=== PATIENT | female | born 1970 | race Hispanic/Latino ===

== ENCOUNTER 2018-04-29 10:39 | Emergency (ER) | payer OTHER ==
[~2018-04-29] VITALS: Ht 157.5 cm; Wt 57.6 kg
[2018-04-29] MEDS ORDERED: ADVIL200 M1 PO (10:53)
== END 2018-04-29 12:08 | disposition home or self-care (01) ==
LOC: ED 10:39
DX: M79.641 Pain in right hand (principal); M79.642 Pain in left hand; Z88.8 Allergy status to other drugs, medicaments and biological substances
CPT/HCPCS: 99282

== ENCOUNTER 2018-12-18 11:20 | Day surgery (SDC) | payer OTHER ==
[~2018-12-18] VITALS: Ht 154.9 cm; Wt 59.0 kg
[~2018-12-18 11:20] MED LIST: ADVIL200 M1 PO
--- NOTE | 2018-12-18 12:16 | NUR ---
PT AND OFFERED COLD MEAT COOK DECLINES STATES HE CAN UNDERSTAND AND INTERPRET FOR .
[2018-12-18] MEDS ORDERED: OXYCODONE HCL5 MG PO (13:40)
--- NOTE | 2018-12-18 13:50 | NUR ---
12/18/18 1350 Sheets,Elza 1342 PT ARRIVED WITH ORAL AIRWAY IN PLACE, RESP EVEN AND UNLABORED. PT ON 10L VIA MASK, DECREASED TO 6L. 1347 PT REACTIVE TO PAINFUL STIMULI.
--- NOTE | 2018-12-18 16:09 | NUR ---
1555 HAS AMB TO [facility], VOIDS QS. ATE SOUP AND SANDWICH. PAIN MED TAKEN FOR LONG RIDE HOME IN CASE BLOCK STARTS TO WEAR OFF. RATES PAIN 12/03.
--- NOTE | 2018-12-20 10:39 | OR ---
[facility] [address] [place], [place] [address] Signed DATE OF OPERATION: 12/18/2018 SURGEON: Romulo Zavala MD PREOPERATIVE DIAGNOSIS: Carpal tunnel syndrome, left POSTOPERATIVE DIAGNOSIS: Carpal tunnel syndrome, left. PROCEDURE PERFORMED: Carpal tunnel release, left. ANESTHESIA: Tristin block. DIRECTOR ASSET: None. TOURNIQUET TIME: 15 minutes. BRIEF HISTORY: Renee is a 48-year-old female with pain and numbness in her wrist. Nerve conduction studies were consistent with carpal tunnel. Risks and benefits of operative treatment were discussed with her and she elected to proceed. DESCRIPTION OF PROCEDURE: Once consent was obtained, she was taken to the operating room. After adequate anesthesia, was placed on operating room table. All downside pressure points well padded. The left arm was prepped and draped in standard sterile fashion and the carpal tunnel was approached through a 1.5 cm incision in the distal wrist crease, carried through skin and subcutaneous tissue. The palmaris longus was identified, retracted and protected. The transverse carpal ligament was identified and dissected free of overlying soft tissue using loupe magnification. It was then transected approximately a cm and distally to the distal extent. This was palpated using a [place] and found to be completely released. Wound was copiously irrigated with antibiotic solution, closed with 3-0 nylon and dressed with bacitracin, Adaptic, and 4x8 gauze, we did inject the wanda-incisional area with 4 mL of 0.25% plain Marcaine. Electronically Signed By: ROMULO ZAVALA MD 12/20/18 1039 PATIENT NAME: RENEE DUTTA OPERATIVE REPORT DATE OF : 70 REPORT #: [id number] PHYSICIAN: ROMULO ZAVALA MD PCP: NO PRIMARY CARE PHYSICIAN REPORT IS CONFIDENTIAL AND NOT TO BE RELEASED WITHOUT AUTHORIZATION [address] [address] Signed Romulo Zavala MD BA/MODL /[id number] Copies: ~ Electronically Signed By: ROMULO ZAVALA MD 12/20/18 1039 PATIENT NAME: RENEE DUTTA OPERATIVE REPORT DATE OF : 70 REPORT #: [id number] PHYSICIAN: ROMULO ZAVALA MD PCP: NO PRIMARY CARE PHYSICIAN REPORT IS CONFIDENTIAL AND NOT TO BE RELEASED WITHOUT AUTHORIZATION
== END 2018-12-18 15:55 | disposition home or self-care (01) ==
LOC: OPS 11:20 → DS 11:20 → OPS 13:00 → DS 13:00 → OPS 15:55
PROVIDERS: Specialist
PROC: 01N50ZZ Release Median Nerve, Open Approach (ICD-10-PCS; principal; 2018-12-18 13:00)
DX: G56.02 Carpal tunnel syndrome, left upper limb (principal); M54.9 Dorsalgia, unspecified; Z98.82 Breast implant status
CPT/HCPCS: 01810; 84703; J0690; J1100; J1885; J2250; J2310; J2405; J2704; J2765; J3010; J7120